=== PATIENT | male | born 1955 | race Caucasian/White ===

== ENCOUNTER 2016-12-30 08:03 | Day surgery (SDC) | payer BC ==
--- NOTE | 2016-12-26 23:12 | HP ---
CC: Dr. Flynn Beltran * HISTORY AND PHYSICAL: DATE OF PLANNED ADMISSION AND SURGERY: 12/30/16 HISTORY OF PRESENT ILLNESS: Mr. Metz is a 61-year-old white male, who is admitted with a left ureteral calculus for cystoscopy, left ureteroscopy, laser lithotripsy, and left ureteral stent placement. Mr. Metz is a known stone former and had required right ureteroscopy for right ureteral calculi in January 2012 and again in April 2012. He is known to have residual renal calculi. He had a metabolic stone work-up, which showed low urine volume but no other abnormalities. He has been maintained on diet for stone prevention. He was known to have residual left renal calculi measuring about 6 to 7 mm each. He was doing fine until about 2 weeks ago when he started having symptoms of left renal colic associated with gross hematuria. He did not have any fever or chills. He was worked up with CT of the abdomen and pelvis, which showed a 6- to 7-mm calculus in the proximal left ureter associated with moderate left hydronephrosis. He also had another 6-mm calculus in the lower pole calyx of the left kidney. The patient was managed conservatively with pain medications and with alpha shahid. He continued to have on and off episodes of flank pain. A KUB was obtained on 12/26/16. It showed a cluster of calcifications in the area of the proximal left ureter consistent with ureteral calculi measuring about 1 cm in total. This might represent the stone seen in the proximal left ureter on the CT plus the lower pole calyx calculus, which might have migrated into the ureter. The patient has been having on and off episodes of left flank pain requiring the use of hydrocodone for control. He did not have any fever or chills. Because of the above history and findings besides of the stones and their proximal location and recurrent episodes of pain, the patient is admitted for the above procedure. PAST MEDICAL HISTORY AND SYSTEM REVIEW: He is generally healthy. He has history of migraines for which he takes medication. MEDICATIONS: He is on vitamins. ALLERGIES: He reports being allergic to PENICILLIN. PHYSICAL EXAMINATION GENERAL: He is a moderately overweight, otherwise healthy-looking white male. VITAL SIGNS: Blood pressure 120/80, pulse of 60, temperature of 97. ABDOMEN: He has moderate left CVA tenderness. RECTAL: Rectal exam on a previous visit had shown a slightly enlarged but nonsuspicious prostate IMPRESSION: Proximal left ureteral calculi with recurrent episodes of left renal colic. PLAN: Considering the size of the stones and their proximal location and the recurrent episodes of pain, the plan is to proceed with a cystoscopy, left ureteroscopy, laser lithotripsy, and left ureteral stent placement. The procedure might have to be staged if the stones are not safely accessible with the ureteroscope or if they migrate back into his kidney. I discussed the above plans with the patient, all his questions were answered. [id number]/[facility] #: [id number] [id number]
[~2016-12-30 08:03] MED LIST: Buffered Lidocaine 0.9% SYRIN* 5 ML/SYR SYRINGE INTRADERM ONE; Famotidine IV* 10 MG/ML 2 ML (20 mg) IV ONE; Metoclopramide TAB* 10 MG PO ONE
[2016-12-30] MEDS ORDERED: Metoclopramide TAB* 10 MG ONE (08:13)
[2016-12-30] MEDS ORDERED: Famotidine IV* 10 MG/ML 2 ML (20 mg) ONE (08:13)
[2016-12-30] MEDS ORDERED: Buffered Lidocaine 0.9% SYRIN* 5 ML/SYR SYRINGE ONE (08:13)
[2016-12-30] MEDS ORDERED: Levofloxacin 750 MG IVPREMIX(* 750 MG/150 ML BAG ONE (08:13)
[2016-12-30] MEDS ORDERED: Ondansetron INJ* 2 MG/ML VIAL ONE (08:36)
[2016-12-30] MEDS ORDERED: Lidocaine 2% PF * 5 ML VIAL ONE (08:36)
[2016-12-30] MEDS ORDERED: Propofol* 10 MG/ML 20 ML BTL IV PUSH ONE (08:36)
[2016-12-30] MEDS ORDERED: KETAMINE HCL* 50 MG/ML 10 ML VIAL ONE (08:36)
[2016-12-30] MEDS ORDERED: Ketorolac INJ* 30 MG/ML 1 ML VIAL ONE (08:36)
[2016-12-30] MEDS ORDERED: fentaNYL* 50 MCG/ML 2 ML VIAL (100 MCG VIAL) ONE (08:36)
[2016-12-30] MEDS ORDERED: Dexamethasone IV* 4 MG/ML 1 ML (4 MG) ONE (08:36)
[2016-12-30] MEDS ORDERED: Midazolam* 1 MG/ML 5 ML VIAL (5 MG) ONE (08:37)
[2016-12-30] MEDS ORDERED: Iohexol 180 (CONTRAST) 10 ML SDV IV ONE (09:37)
[2016-12-30] MEDS ORDERED: EPHEDrine (Pressors)* 50 MG/ML VIAL ONE (10:17)
[2016-12-30] MEDS ORDERED: fentaNYL* 50 MCG/ML 2 ML VIAL (100 MCG VIAL) IV PRN (10:23)
[2016-12-30] MEDS ORDERED: Ondansetron INJ* 2 MG/ML VIAL IV PRN (10:23)
[2016-12-30] MEDS ORDERED: oxyCODONE/Acetamin 5/325 MG* TAB PO PRN (10:23)
--- NOTE | 2016-12-30 11:09 | RAD ---
INDICATION: Left stent insertion COMPARISON: None FINDINGS: 8 seconds of fluoroscopy were provided for the urology department. Fluoroscopic spot imaging of the abdomen were obtained for operative control and show a retrograde examination correlating placement of a left ureteral stent. The proximal stent appears normally positioned. The caudal portion of the stent is not imaged. CPT II Codes: 6045F (fluoro time doc)
[2016-12-30 12:12] VITALS: BP 130/77
--- NOTE | 2016-12-31 00:35 | OP ---
CC: Dr. Flynn Beltran * DATE OF OPERATION: 12/30/16 - [facility] DATE OF : 51 SURGEON: Go Calixto MD ANESTHESIOLOGIST: Shola Jenkins MD ANESTHESIA: General. PRE-OP DIAGNOSIS: Proximal left ureteral calculi. POST-OP DIAGNOSIS: Proximal left ureteral calculi. OPERATIVE PROCEDURE: 1. Cystoscopy, left ureteroscopy, laser lithotripsy of left ureteral calculi. 2. Left retrograde pyelography and placement of left ureteral stent (6-Uzbek). INDICATION FOR PROCEDURE: Mr. Metz is a known stone former who presented about 2 weeks ago with symptoms of left renal colic. CT showed a 6 mm calculus in the proximal left ureter, another 6 mm calculus in the lower pole calyx of the left kidney. The patient was managed conservatively with pain medication and alpha blockers; however, he continued to be symptomatic. Followup KUB showed a cluster of stones in the proximal left ureter with the likelihood that the left renal calculus had also dropped into the proximal ureter adjacent to the stone. Because of the above history and finding, the persistent pain and size of the stones, the above procedure was advised and accepted. PATHOLOGY: At cystoscopy, the penile and bulbar urethrae looked normal. The prostatic urethra measured 2.5 cm in length and there was early prostate enlargement and obstruction. Examination of the bladder showed normal ureteral orifices. The bladder mucosa looked normal. There were no suspicious bladder lesions seen. At fluoroscopy, radiopaque calculi were noted in the proximal left ureter. At left ureteroscopy, there was cluster of stones seen in the proximal left ureter about 3 cm distal to the ureteropelvic junction. The larger stone measured about 6 mm in size and was impacted. The other fragments were small measuring about 2 to 3 mm each. DESCRIPTION OF PROCEDURE: After successful general anesthesia, the patient was placed in the lithotomy position and was prepped and draped for cystoscopy. Cystoscopy was performed. The bladder was inspected and the above findings were noted. A flexible tip guidewire was then introduced into the left orifice and the proximal end coiled in the area of the renal pelvis. A 6.5 semirigid ureteroscope was then introduced inside the bladder. A flexible tip spiral basket was introduced through the port of the ureteroscope and the flexible tip was then introduced into the left ureter adjacent to the guidewire. That allowed the atraumatic introduction of the ureteroscope into the ureter. The ureter was easy to scope and the ureteroscope was introduced without any trauma all the way up to the proximal end where the calculi were noted. The basket was introduced beyond the stones and it was deployed to prevent proximal migration of the stones. The smaller fragments were then extracted using the basket. The larger stone was engaged in the basket to prevent its proximal migration. A 550 micron laser fiber was then introduced through the other port of the ureteroscope and the stone was broken into multiple smaller fragments and the fragments were extracted with the basket. There was no injury to the ureteral wall and the procedure was atraumatic. Final ureteroscopy showed no residual stone fragments, intact ureteral wall. Retrograde pyelography was then performed. There was no dilatation and no extravasation of contrast. A size 6-Uzbek stent was then placed with the proximal end coiling in the renal pelvis and the distal end coiling inside the bladder. The bladder was then irrigated and the stone fragments were evacuated and sent for stone analysis. The patient tolerated the procedure well and left the operating room in good condition. The plan is to leave the stent in place for next week. It will be removed in the office under local anesthesia. [id number]/[facility] #: [id number] [facility]TD[facility]
== END 2016-12-30 12:14 | disposition home or self-care (01) ==
LOC: OR 08:03
PROVIDERS: ATTEND Urology
DX: N20.1 Calculus of ureter (principal); N40.1 Benign prostatic hyperplasia with lower urinary tract symptoms; N13.8 Other obstructive and reflux uropathy; Z88.0 Allergy status to penicillin
CPT/HCPCS: 74420; 82365; 88300; A9270-GY; C1876; J1100; J1885; J2250; J2405; J2704; J3010